=== PATIENT | female | born 1940 | race Caucasian/White ===

== ENCOUNTER → 2016-07-26 | Day surgery (SDC) | payer MEDICARE, BC ==
[~2016-07-26] MED LIST: ACETAMINOPHEN PO; ADVIL200 M1 PO; ASPIRIN81 M2 PO; CALCIUM 500 MG1 TAB PO; CALCIUM-MAGNES1 EAC1 PO; CENTRUM SILVER PO; COSOPT EYE DROP10 ML; DARVOCET PO; FISH OIL 1,0001 CAP PO; FLONASE ALLERG9.9 ML; HYDROCODON-ACE1 EAC5 PO; IBUPROFEN800 MG PO; L-LYSINE500 M2 PO; MUCINEX SINUS-1 EAC1 PO; MULTIPLE VITAM1 EAC1 PO; OMEPRAZOLE20 M1 PO; PRILOSEC20 MG PO; SIMVASTATIN; SIMVASTATIN20 MG PO; TRAMADOL HCL50 M1 PO; TYLENOL EXTRA500 M1 PO; ULTRAM PO; VIT B12 PO; VIT C PO; VITAMIN B12-FO1 EACH PO; VITAMIN B122500 MCG; VITAMIN C500 M5 PO; VITAMIN D3400 UNI1 PO; VITAMIN D400 UNI1 PO; VITAMIN D400 UNI2 PO; VITAMIN E1000 UNI1 PO; XALATAN OU; ZESTRIL10 M2 PO; ZYRTEC10 M1 PO; ZYRTEC5 M4 PO
--- NOTE | ~2016-07-26 | OR ---
Unit #: [id number] #: [id number] Patient: CARA CONNELL [id number] [address] [address] [id number] O MR#: [id number] NAME: CARA CONNELL ROOM: Date of Procedure: 07/26/2016 Admission Date: 07/26/2016 Surgeon: Michael Webb M.D. : 1940 Attending Physician: Michael Webb M.D. Primary Care Physician: Yaneth Gross M.D. OPERATIVE REPORT PREOPERATIVE DIAGNOSES 1. Back pain. 2. Radiculopathy. 3. Spondylolisthesis. 4. Degenerative disk disease. POSTOPERATIVE DIAGNOSES 1. Back pain. 2. Radiculopathy. 3. Spondylolisthesis. 4. Degenerative disk disease. PROCEDURE PERFORMED Lumbar epidural steroid injection with fluoroscopic guidance needle localization. HISTORY This is a 75-year-old female with back and left greater than right lower extremity pain due to previously mentioned nonsurgical diagnosis. She has stable listhesis and significant degenerative disk disease. Plan is for trial of epidural steroids based on her fair respond adequately with conservative measures alone. DESCRIPTION OF PROCEDURE The patient was placed in a seated position. Standard monitors were applied. Sterile prep and drape of the lumbar area was performed. The skin then at the L5 level was localized with 1% lidocaine. An 18-gauge [employer] needle was then advanced via loss of resistance technique and fluoroscopic guidance in toward the epidural space. After confirming proper positioning with fluoroscopy and radiographic contrast, 80 mg of Depo-Medrol and 6 mL of preservative-free normal saline were deposited. The patient tolerated the procedure otherwise well and was discharged to the recovery room in stable condition. Dictated by... Michael Webb M.D. LHP/marleen TD: 07/26/2016 12:39 Unit #: [id number] #: [id number] Patient: CARA CONNELL JOB #: [id number] CC: Sovera/invision Please Delete OPERATIVE REPORT Page 1 of 1 X Michael Webb MD X PROCEDURE OPERATIVE NOTE
== END | disposition home or self-care (01) ==
LOC: CCSC 10:50
DX: M51.16 Intervertebral disc disorders with radiculopathy, lumbar region (principal); M43.16 Spondylolisthesis, lumbar region
CPT/HCPCS: J1040; J2250

== ENCOUNTER → 2016-08-07 | Outpatient (CLI) | payer MEDICARE, BC ==
--- NOTE | ~2016-08-07 | CT2 ---
[facility] A Service of [facility] RADIOLOGY TEXT RESULTS PATIENT: CARA CONNELL LOCATION: [facility] : 44 UNIT #: [id number] AGE: [address]: Sushila Byrd APRN SEX: F ORDER DR: [id number] [place] [id number] O MR#: [id number] Acc #: [id number] NAME: CARA CONNELL : 1940 SEX: F STUDY DATE/TIME: 08/07/2016 11:14 UNIT: [facility] ROOM: STUDY DESCRIPTION: CT Abd and Pelv W Cont Attending Physician: Sushila Byrd A.P.R.N. Referring Physician: Sushila Byrd A.P.R.N. Ordering Physician: Sushila Byrd A.P.R.N. Primary Care Physician: Yaneth Gross M.D. MEDICAL IMAGING REPORT This report is preliminary unless electronic signature is present. EXAM CT abdomen and pelvis with contrast. INDICATIONS History of ulcerative colitis. Generalized abdominal pain, cramping, vomiting and bright red blood in the stools since Saturday. PROCEDURE Contrast-enhanced CT of the abdomen and pelvis. This CT exam was performed with one or more of the following radiation dose reduction techniques: automatic exposure control, adjustment of mA and/or kV according to patient size, and iterative reconstruction. COMPARISON None FINDINGS ABDOMEN WITH CONTRAST: The liver, spleen, kidneys, adrenal glands, pancreas and gallbladder unremarkable. Bowel loops are nondilated. Possible mild thickening of the descending and sigmoid colon versus under-distension. Small bowel loops are unremarkable. PELVIS WITH CONTRAST: No pelvic mass or fluid. No aggressive- appearing bone lesion. IMPRESSION Possible mild thickening of the descending and sigmoid colon versus under-distension. This could represent mild left-sided colitis. There is no evidence for abscess or obstruction. Dictated by... Kvng Ruffin M.D. [facility] A Service of [facility] RADIOLOGY TEXT RESULTS PATIENT: KO,CARA LOCATION: [facility] #: [id number] : 44 UNIT #: [id number] AGE: [address]: Sushila Byrd APRN SEX: F ORDER DR: THIS IS AN ELECTRONICALLY VERIFIED REPORT Kvng Ruffin M.D. at 08/08/2016 2:29 PM Zeus TD: 08/07/2016 19:05 JOB #: [id number] MEDICAL IMAGING REPORT Page 1 of 1
[2016-08-07 09:40] LABS: POC - CREATININE 0.76 mg/dL (0.44-1.03); POC - GFR >60.0 mL/min (>60)
== END | disposition home or self-care (01) ==
LOC: SCT 09:14
PROVIDERS: Nurse Practitioner
DX: K62.5 Hemorrhage of anus and rectum (principal); R10.9 Unspecified abdominal pain
CPT/HCPCS: 74177; 82565; Q9967

== ENCOUNTER → 2016-08-23 | Day surgery (SDC) | payer MEDICARE, BC ==
--- NOTE | ~2016-08-23 | OR ---
Unit #: [id number] #: [id number] Patient: CARA CONNELL [id number] [address] [place], [place] [address] [id number] O MR#: [id number] NAME: CARA CONNELL ROOM: Date of Procedure: 08/23/2016 Admission Date: 08/23/2016 Surgeon: Michael Webb M.D. : 1940 Attending Physician: Michael Webb M.D. Primary Care Physician: Yaneth Gross M.D. OPERATIVE REPORT PREOPERATIVE DIAGNOSES Back pain, radiculopathy, spondylolisthesis, degenerative disk disease. POSTOPERATIVE DIAGNOSES Back pain, radiculopathy, spondylolisthesis, degenerative disk disease. PROCEDURE PERFORMED Lumbar epidural steroid injection with fluoroscopic guidance for needle localization. INDICATIONS FOR PROCEDURE The patient is a 75-year-old female with previously mentioned diagnosis, back and radicular pain due to this. She did very well with an epidural steroid injection 4 weeks ago. She gotten about 60% to 70% settling of her symptom complex. There were some partial return, so plan is to repeat a second injection at this point. DESCRIPTION OF PROCEDURE The patient was placed in a seated position. Standard monitors were applied. Sterile prep and drape of the lumbar area was performed. The skin at the L4-L5 level was localized with 1% lidocaine. An 18-gauge Langhartead needle was then advanced via loss of resistance technique and fluoroscopic guidance in toward the epidural space. The patient did not complain of pain or paresthesia. After confirming proper positioning with fluoroscopy and radiographic contrast, 80 mg of Depo-Medrol and 6 mL of preservative-free normal saline were deposited. The patient tolerated the procedure otherwise well and was discharged to the recovery room in stable condition. Dictated by... Ester Patel/marleen TD: 08/24/2016 00:37 JOB #: [id number] Unit #: [id number] #: [id number] Patient: CARA CONNELL OPERATIVE REPORT Page 1 of 1 X Michael Webb MD X PROCEDURE OPERATIVE NOTE
== END | disposition home or self-care (01) ==
LOC: CCSC 11:15
DX: M51.16 Intervertebral disc disorders with radiculopathy, lumbar region (principal); M43.16 Spondylolisthesis, lumbar region
CPT/HCPCS: J1040; J2250

== ENCOUNTER → 2016-09-26 | Outpatient (CLI) | payer MEDICARE, BC ==
--- NOTE | ~2016-09-26 | MR113 ---
[facility] A Service of [facility] RADIOLOGY TEXT RESULTS PATIENT: CARA CONNELL LOCATION: [facility] : 42 UNIT #: [id number] AGE: [address]: Michael eWbb MD SEX: F ORDER DR: [id number] [facility] [address] [facility]. [place], [place] [address] [id number] O MR#: [id number] Acc #: [id number] NAME: CARA CONNELL : 1940 SEX: F STUDY DATE/TIME: 09/26/2016 9:28 UNIT: [facility] ROOM: STUDY DESCRIPTION: MR Lumbar Wo Contrast Attending Physician: Michael Webb M.D. Referring Physician: Michael Webb M.D. Ordering Physician: Michael Webb M.D. Primary Care Physician: Yaneth Gross M.D. MRI CENTER REPORT This report is preliminary unless electronic signature is present. EXAM Lumbar spine MRI HISTORY Chronic low back pain for 25-30 years with bilateral leg pain posteriorly. TECHNIQUE Multiplanar imaging of the lumbar spine was performed with short and long TR. FINDINGS There is a generalized lumbar levoscoliosis with a Fatima angle of 22 degrees. Degenerative changes are seen at all lumbar levels. There are 6 lumbar vertebrae. At T12-L1, there is a right-sided disc herniation that extends down behind L1. It causes moderate effacement of the thecal sac but does not contact or compress the conus. No exiting nerve root compression is seen. At L1-2, there is broad-based posterior disc bulging with osteophyte formation. There is mild bilateral facet hypertrophy and mild bilateral foraminal narrowing. At L2-3, the disc is narrowed with broad-based posterior disc bulging and mild bilateral facet disease. Central stenosis and foraminal narrowing is mild. At L2-3, there is moderate bilateral facet disease. There is broad-based posterior disc bulging with disc space narrowing. Disc bulging is greater to the left than to the right. Foraminal stenosis is moderate on the left and mild on the right. [facility] A Service of [facility] RADIOLOGY TEXT RESULTS PATIENT: CARA CONNELL LOCATION: [facility] : 42 UNIT #: [id number] AGE: [address]: Michael Webb MD SEX: F ORDER DR: At L3-4, the disc is narrowed with broad-based disc bulging and moderate bilateral facet disease. Foraminal narrowing is mild bilaterally. At L4-5, the disc is narrowed with broad-based posterior disc bulging. There is advanced bilateral facet hypertrophy. There is no significant central stenosis. Foraminal stenosis is moderate bilaterally. At L5-L6, there is disc space narrowing with broad-based posterior disc bulging. Facet hypertrophy is advanced on the left and moderate on the right. Foraminal narrowing is moderate bilaterally. At L6-S1, there is a grade 1 spondylolisthesis with degenerative disc disease. There is moderately severe bilateral facet disease. Foraminal narrowing is moderately severe on both sides. No definite pars defects are seen. IMPRESSION 1. Multilevel generally moderate degenerative disc and facet disease as described above level by level accompanied by 21 degrees to 22 degrees of levoscoliosis. 2. Right-sided disc herniation T12-L1. 3. Degenerative grade 1 spondylolisthesis L5-L6. 4. In correlating this examination with plain films from 02/14/2016, no definite progression of degenerative change is seen when compared to the previous plain film study. Dictated by... Mynor Serrano M.D. THIS IS AN ELECTRONICALLY VERIFIED REPORT Mynor Serrano M.D. at 09/27/2016 3:39 PM PANCHO/nilton TD: 09/27/2016 08:18 JOB #: [id number] MRI CENTER REPORT Page 1 of 1 COPY
== END | disposition home or self-care (01) ==
LOC: CMRI 08:53
DX: M51.15 Intervertebral disc disorders with radiculopathy, thoracolumbar region (principal); M51.16 Intervertebral disc disorders with radiculopathy, lumbar region; M43.16 Spondylolisthesis, lumbar region; M47.26 Other spondylosis with radiculopathy, lumbar region
CPT/HCPCS: 72148

== ENCOUNTER → 2016-10-10 | Day surgery (SDC) | payer MEDICARE, BC ==
--- NOTE | ~2016-10-10 | OR ---
Unit #: [id number] #: [id number] Patient: CARA CONNELL [id number] [address] [place], [place] [address] [id number] O MR#: [id number] NAME: CARA CONNELL ROOM: Date of Procedure: 10/10/2016 Admission Date: 10/10/2016 Surgeon: Timmy Davila M.D. : 1940 Attending Physician: Timmy Davila M.D. Referring Physician: Timmy Davila M.D. Primary Care Physician: Yaneth Gross M.D. OPERATIVE REPORT PREOPERATIVE DIAGNOSES Dyspepsia and epigastric pain. In addition, the patient has personal history of colon polyps and has come for surveillance colonoscopy. PROCEDURES PERFORMED 1. Upper gastrointestinal endoscopy and biopsy. 2. Upper gastrointestinal endoscopy and polypectomy. 3. Colonoscopy with polypectomy. POSTOPERATIVE DIAGNOSES For upper endoscopy: 1. The patient had multiple large sessile polyps in the fundus of the stomach. Three of these were removed for sampling and were sent for histology. These most likely are hyperplastic polyps. 2. There was evidence of distal grade 2 erosive confluent ulcerative esophagitis. 3. Rest of examination up to third part of duodenum was normal. A biopsy obtained from the antrum for CLOtest. For colonoscopy: 1. A single sessile polyp in the proximal descending colon. This was about 1.6 cm in size. It was removed using snare cautery polypectomy. The polyp was retrieved and sent for histology. 2. Medium-sized internal hemorrhoids. 3. Mild sigmoid and descending colon diverticulosis. 4. Rest of the examination up to cecum and terminal ileum was normal. The quality of the prep was excellent. RECOMMENDATIONS The patient will continue on pantoprazole or Protonix or omeprazole 40 mg p.o. daily. She will be followed up in the office in 8 to 10 weeks' time. In addition, she will require a repeat colonoscopy in 5 years. SEDATION MAC. DESCRIPTION OF PROCEDURE Following detailed explanation of the potential risks and complications of a colonoscopy and upper endoscopy, namely perforation, bleeding, complications related to sedation, the patient was brought to GI lab and laid in the left lateral decubitus position. Lubricated tip of the Olympus video upper endoscope was passed through the bite block into the proximal esophagus under direct vision. The entire esophageal mucosa was Unit #: [id number] #: [id number] Patient: CARA CONNELL examined. The patient was noted to have confluent distal grade 2 ulcerative esophagitis with erosions at the Z-line in the distal esophagus. No stricture was present and no hiatus hernia was seen. The scope was then advanced into the gastric cavity and the latter was insufflated. Mucosa of the fundus, body, and antrum was examined. The patient was noted to have multiple polyps in the fundic mucosa somewhat as large as 2 cm. These most likely are hyperplastic polyps. Pylorus was intubated with visualization of the normal duodenal bulb and second and third part of the duodenum. Upon withdrawal and retroflexion, incisura, cardia, and greater curve examined and a biopsy obtained from the antrum for CLOtest. We then removed 3 of the sessile polyps using a snare cautery polypectomy. These were retrieved and sent for histology. The scope was then withdrawn from the distal esophagus. The entire esophageal mucosa was examined all the way up to pharynx, no additional findings noted. The examination table was then turned by 180 degrees and the patient positioned for a colonoscopy. A digital rectal examination was performed, which was normal. Lubricated tip of the Olympus video colonoscope was inserted through the anus and advanced under direct vision. The scope was advanced and passed up to sigmoid into the descending colon. Multiple medium-sized diverticula were noted in this area. The scope tip was then navigated all the way up to cecum with visualization of the ileocecal valve and the appendiceal orifice. Preparation was excellent with good visualization and photodocumentation was obtained. Last few inches of the terminal ileum also visualized after intubation of the ileocecal valve and appeared normal. Successive segments of the colonic mucosa were examined upon withdrawal. Other than the evidence of pandiverticulosis, the patient was noted to have a 1.6 to 1.7 cm sessile polyp in the proximal descending colon. The latter was removed using snare cautery polypectomy. The polyp was retrieved and sent for histology. Excellent hemostasis was achieved. Photodocumentation was obtained. No additional polyps were noted. Other than diverticulosis noted earlier, the patient was also noted to have medium-sized internal hemorrhoids seen at the anal verge both on retroflexion and on antegrade examination. The scope was then withdrawn. The patient returned to the recovery area. She tolerated the procedure without any postprocedure complications. Dictated by... Ester Anthony TD: 10/11/2016 06:45 JOB #: [id number] OPERATIVE REPORT Page 1 of 1 X Timmy Davila MD X PROCEDURE OPERATIVE NOTE
== END | disposition home or self-care (01) ==
LOC: COPS 14:11
DX: D12.4 Benign neoplasm of descending colon (principal); K31.7 Polyp of stomach and duodenum; K64.8 Other hemorrhoids; K57.30 Diverticulosis of large intestine without perforation or abscess without bleeding; K20.9 Esophagitis, unspecified; Z86.010 Personal history of colon polyps; K21.9 Gastro-esophageal reflux disease without esophagitis; M19.90 Unspecified osteoarthritis, unspecified site; Z79.899 Other long term (current) drug therapy; Z96.652 Presence of left artificial knee joint; Z98.41 Cataract extraction status, right eye; Z98.42 Cataract extraction status, left eye; Z98.51 Tubal ligation status
CPT/HCPCS: 87077; 88305; 88312

== ENCOUNTER → 2016-11-06 | Day surgery (SDC) | payer MEDICARE, BC ==
--- NOTE | ~2016-11-06 | OR ---
Unit #: [id number] #: [id number] Patient: CARA CONNELL [id number] [address] [place], [place] [address] [id number] O MR#: [id number] NAME: CARA CONNELL ROOM: Date of Procedure: 11/06/2016 Admission Date: 11/06/2016 Surgeon: Michael Webb M.D. : 1940 Attending Physician: Michael Webb M.D. Referring Physician: Michael Webb M.D. Primary Care Physician: Yaneth Gross M.D. OPERATIVE REPORT PREOPERATIVE DIAGNOSES Back pain and degenerative facet disease. POSTOPERATIVE DIAGNOSIS Back pain and degenerative facet disease. PROCEDURE PERFORMED Lumbar facet injection x2 levels with fluoroscopic guidance and needle localization. INDICATIONS FOR PROCEDURE The patient is a 75-year-old female, who continues to have significant back pain with some radiculopathy. She has multilevel degenerative disk and spine disease. A trial of epidural steroids gave her some improvement and is not maintained significant improvement. Workup demonstrated some fairly significant facet disease, which her pain complaints and examination are consistent with, so plan is for trial of diagnostic and therapeutic bilateral facet injections at the L5-L6 and L6-S1 levels. There is a spondylolisthesis at the L6-S1 level. DESCRIPTION OF PROCEDURE The patient was placed in a prone position. Standard monitors were applied. Sterile prep and drape then of the lumbosacral area were performed. Fluoroscopy was used to identify the location of bilateral L5-L6 and L6-S1 facet joints. The skin overlying these was then localized with 1% lidocaine. At each of these levels, a 22-gauge Quincke point spinal needle was then advanced down into the edge of the facet joint using fluoroscopic guidance. The patient has localized discomfort, but no paresthesia. After confirming proper positioning with fluoroscopy at each of these levels, a dose of 1 mL of a mixture of 80 mg of Depo-Medrol and 3 mL of 0.25% bupivacaine were deposited. The patient tolerated the procedure otherwise well and was discharged to the recovery room in stable condition. Dictated by... Ester Patel/marleen TD: 11/06/2016 14:12 JOB #: [id number] Unit #: [id number] #: [id number] Patient: CARA CONNELL CC: [facility] OPERATIVE REPORT Page 1 of 1 X Michael Webb MD X PROCEDURE OPERATIVE NOTE
== END | disposition home or self-care (01) ==
LOC: CCSC 10:54
DX: M51.16 Intervertebral disc disorders with radiculopathy, lumbar region (principal); M53.86 Other specified dorsopathies, lumbar region; Z91.040 Latex allergy status; Z79.82 Long term (current) use of aspirin; Z79.899 Other long term (current) drug therapy
CPT/HCPCS: J1040; J2250